=== PATIENT | female | born 1970 | race Caucasian/White ===

== ENCOUNTER → 2017-10-18 19:09 | Outpatient (CLI) | payer OTHER, SELFPAY ==
[2017-10-23 10:13] LABS: HPV APTIMA, High Risk Negative (Negative)
== END ==
PROVIDERS: Visit Provider Nurse Practitioner Women's Health
DX: Z12.4 Encounter for screening for malignant neoplasm of cervix (principal)
CPT/HCPCS: 88175; G0145

== ENCOUNTER → 2020-03-25 | Outpatient (CLI) | payer OTHER, SELFPAY ==
[2017-10-18 13:11] VITALS: BMI 27.8
--- NOTE | 2020-03-25 | IMM_PTH ---
PATIENT: GIL RODRIGUEZ LOC: [facility] #:[id number] AGE/SX: 50/F ROOM: RE03/25/[address]: Dr. Rubin Shah MD : 1970 BED: DIS: 03/25/2020 SPEC #: [id number] RECD: 03/29/20 12:49 STATUS: DAVIE SONNY #: [id number] BLANCA: 03/25/20 00:[address]: Rubin Shah DEPT: IMMUNOHISTOCHEMISTRY RECD BY: Karine Chavez Tissues: A - Uterine cervix, NOS B - Endocervical Procedures: p16 (initial) KI-67 (add) PHYSICIAN & [place] [id number] SPECIMEN INFORMATION: Tissue Source: A - Cervix, four-quad biopsy, B - ECC Clinical Info: R87.612, R87.950 Specimen Number: [id number] A & B CPT code: 90265 x2, 90170 x2 METHODOLOGY: Deparaffinized sections of prefer/formalin-fixed tissue or PAP/DQ stained slides are incubated with monoclonal/polyclonal antibodies/oligonucleotide probes. Localization is made via biotin free immunoperoxidase method. Appropriate controls are performed and reacted as expected. Results on target cell population are indicated in the following table: RESULTS: ANTIBODY / CLONE RESULT Block A P16 (E6H4) positive, focal block staining Ki-67 (30-9) positive, moderate Block B P16 (E6H4) positive, focal block staining Ki-67 (30-9) positive, moderate These tests were developed and their performance characteristics determined by [facility]. They may not have been cleared or approved by the U.S. Food and Drug Administration. The FDA has determined that such clearance or approval is not necessary. The above immunohistochemical/dualISH markers are ordered and reviewed by the Pathologist. INTERPRETATION: A. Cervix, four-quad biopsy: Mild and focal moderate squamous dysplasia. B. ECC: Mild and focal moderate squamous dysplasia. SJ:lucille 03/30/20 Case has been reviewed in consultation with Dr. Denny who concurs with the above diagnosis. IDC:AM
--- NOTE | 2020-03-25 15:30 | CER_PTH ---
PATIENT: GIL RODRIGUEZ [id number] AGE/SX: 50/F ROOM: RE03/25/[address]: Dr. Rubin Shah MD : 1970 BED: DIS: 03/25/2020 SPEC #: [id number] RECD: 03/25/20 16:00 STATUS: DAVIE JAVIERWhitney #: [id number] BLANCA: 03/25/20 15:[address]: Rubin Shah DEPT: SURGICAL PATHOLOGY RECD BY: Felix Valera Tissues: A - Uterine cervix, NOS B - Endocervical Procedures: Surgery Specimen Level IV HEADER OPERATION: Colposcopy PRE-OP DIAGNOSIS: R87.612, R87.810 TISSUE SUBMITTED: A - Cervical biopsy four quad, B - ECC MICROSCOPIC DIAGNOSIS A. 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 Chronic inflammation. See comment. B. ECC: Fragments of squamous epithelium with mild and focal moderate squamous dysplasia and focal changes suspicious for HPV cytopathic effects (HGSIL and CARA I-II). Fragments of benign endocervical mucosa with chronic inflammation and squamous metaplasia, blood and mucous. See comment. SJ:rg 03/29/20 COMMENT A & B. Immunohistochemistry ([id number]) for surrogate HPV marker (p16) supports the above diagnosis. This case has been reviewed in consultation with Dr. Denny who concurs with the above diagnosis. MICROSCOPIC DESCRIPTION Slides are reviewed. GROSS DESCRIPTION A - Received in fixative is one container labeled with the patient's name and designated cervical biopsy four quadrant. The specimen consists of multiple irregular fragments of conrad soft tissue that in aggregate measure 2 x 0.5 x 0.1 cm. The specimen is totally submitted in one cassette. B - Received in fixative is one container labeled with the patient's name and designated ECC. The specimen consists of multiple fragments of hemorrhagic soft tissue that in aggregate measure 1.2 x 1.2 x 0.2 cm. The specimen is totally submitted in one cassette. / AMEE:lucille 03/26/20 TC:5 CPT: 55404 x2
== END | disposition home or self-care (01) ==
LOC: LABSPEC 15:58
PROVIDERS: Visit Provider Obstetrics & Gynecology
DX: R87.612 Low grade squamous intraepithelial lesion on cytologic smear of cervix (LGSIL) (principal); R87.810 Cervical high risk human papillomavirus (HPV) DNA test positive
CPT/HCPCS: 88305; 88341; 88342

== ENCOUNTER 2020-06-14 09:09 | Day surgery (SDC) | payer OTHER, SELFPAY ==
[2020-06-09 13:35] LABS: Hematocrit 40.2 % (37-47); Hemoglobin 13.1 g/dL (12.0-15.0); Mean Corp Hgb Conc 32.6 g/dL (32-36); Mean Corpuscular Hgb 32.4 pg (27.0-32.0); Mean Corpuscular Volume 99.5 fL (81-99); Platelet Count 269 K/mm3 (150-450); RBC Distribution Width CV 12.3 % (11.6-14.6); RBC Distribution Width SD 44.5 fl (35.1-43.9); Red Blood Count 4.04 M/mm3 (4.2-5.4); White Blood Count 6.6 K/mm3 (4.4-11.0)
[2020-06-09 13:45] LABS: Prothrombin Time (Protime)PT. 12.6 SECONDS (11.7-14.9)
[2020-06-09 13:47] LABS: Partial Thromboplast Time 27.3 Seconds (24.1-36.2)
[2020-06-09 13:52] LABS: hCG Titer Quant., Serum < 1 mIU/mL (1-3)
--- NOTE | 2020-06-13 21:01 | PCM.HP.BLA ---
History and Physical Date of Admission: 06/14/20 Surgical History and Physical Tamia Moreno, a 50 year old female 3 0 1 0 3, presents for LEEP on June 14, 2020 at 7:30. -- CARA II. Mild and focal moderate squamous dysplasia with HPV changes (HGSIL and CARA I-II). MEDICATIONS HISTORY: ALLERGIES: No Known Allergies Infections - Chicken pox Illnesses - no serious past illnesses Accidents - None Hospitalizations - surgery Review of Systems: GENERAL - Denies fever, or chills SKIN - Denies skin changes EYES - Denies visual changes EARS - Denies difficulty hearing NOSE - Denies nasal congestion or bleeding MOUTH - Denies sore throat or difficulty swallowing NECK - Denies pain or swelling RESPIRATORY - Denies shortness of breath or wheezing CARDIOVASCULAR - Denies palpitations or chest pain GASTROINTESTINAL - Denies nausea, vomiting, diarrhea, constipation GENITOURINARY - Denies dysuria, frequency of urination, incontinence of urine MUSCULOSKELETAL - Denies joint or muscle pain NEUROLOGICAL - Denies localized numbness or weakness PSYCHIATRIC - Denies depression or anxiety ENDOCRINE - Denies heat or cold intolerance, weight loss or gain HEMATO-IMMUNOLOGIC - Denies excesive bleeding with cuts SOCIAL HISTORY: Alcohol Use - socially Smoking - Never Diet - no special diet Lifestyle - moderate stress lifestyle and Exercise - active Seat Belt Use - always Employer - [employer] 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 T and A, 1979 PHYSICAL EXAM BP- 122/70 Sitting, Right arm, regular cuff Weight- 143.17196 lbs Height- 62 inch BMI:26.21 CONSTITUTIONAL - NAD, well nourished, and well developed SKIN - No rash, lesions, or ulcers HEENT - Normocephalic, PERRLA, EOMI NECK - No nodes, no nuchal rigidity and thyroid normal size and texture LYMPH NODES - Palpation of lymph nodes in neck and groins within normal limits LUNGS - CTA x2 without wheezes, crackles or rales CARDIAC - Regular rate and rhythm without rubs, murmurs, or gallops BREAST - Deferred ABDOMEN - Without hepatosplenomegaly, distention, masses, rebound, or guarding; normal bowel sounds; no hernias EXTREMITIES - No edema or calf tenderness NEUROLOGICAL - Cranial nerves II-XII grossly intact PSYCHIATRIC - A and O to time, place, person, mood and affect MEDICATIONS HISTORY: none CONSTITUTIONAL - NAD, well nourished, and well developed SKIN - No rash, lesions, or ulcers HEENT - Normocephalic, PERRLA, EOMI NECK - No nodes, no nuchal rigidity and thyroid normal size and texture LYMPH NODES - Palpation of lymph nodes in neck and groins within normal limits LUNGS - CTA x2 without wheezes, crackles or rales CARDIAC - Regular rate and rhythm without rubs, murmurs, or gallops BREAST - No dominant masses, no tenderness, no axillary adenopathy, no nipple discharge, no skin changes ABDOMEN - Without hepatosplenomegaly, distention, masses, rebound, or guarding; normal bowel sounds; no hernias EXTREMITIES - No edema or calf tenderness NEUROLOGICAL - Cranial nerves II-XII grossly intact PSYCHIATRIC - A and O to time, place, person, mood and affect ASSESSMENT/PLAN BY DIAGNOSIS: 1. Moderate Cervical Dysplasia Plan LEEP. Discussed RBAS and all questions answered.
[2020-06-14] VITALS (7 sets, daily range): BP systolic 104–110; BP diastolic 70–79; PULSE 54–64; RESP 16; TEMP 36.2–37.4; O2SAT 97–100; BMI 26.0
--- NOTE | 2020-06-14 | IMM_PTH ---
PATIENT: IGL RODRIGUEZ LOC: [facility] [place] U#:[id number] AGE/SX: 50/F ROOM: RE06/14/[address]: Dr. Rubin Shah MD : 1970 BED: DIS: 06/14/2020 SPEC #: [id number] RECD: 06/15/20 12:32 STATUS: DAVIE REQ #: [id number] BLANCA: 06/14/20 00:[address]: Rubin Shah DEPT: IMMUNOHISTOCHEMISTRY RECD BY: Karine Chavez ENTERED: 06/15/20 12:34 SP TYPE: IMMUNO OT DR: No Primary Care Phys Tissues: A - Endocervical B - Uterine cervix, NOS Procedures: p16 (initial) KI-67 (add) PHYSICIAN & INSTITUTION [place] [id number] SPECIMEN INFORMATION: Tissue Source: A - Endocervix, B - Ectocervix Clinical Info: Moderate cervical dysplasia Specimen Number: [id number] A1 & B2 CPT code: 41304 x2, 05949 x2 METHODOLOGY: Deparaffinized sections of prefer/formalin-fixed tissue or PAP/DQ stained slides are incubated with monoclonal/polyclonal antibodies/oligonucleotide probes. Localization is made via biotin free immunoperoxidase method. Appropriate controls are performed and reacted as expected. Results on target cell population are indicated in the following table: RESULTS: ANTIBODY / CLONE RESULT Block A P16 (E6H4) negative Ki-67 (30-9) negative Block B P16 (E6H4) positive, focal, patchy Ki-67 (30-9) negative These tests were developed and their performance characteristics determined by [facility]. They may not have been cleared or approved by the U.S. Food and Drug Administration. The FDA has determined that such clearance or approval is not necessary. The above immunohistochemical/dualISH markers are ordered and reviewed by the Pathologist. INTERPRETATION: A. Endocervix, LEEP conization: No evidence of dysplasia. B. Ectocervix, LEEP conization: Focal mild squamous dysplasia, CARA I (LSIL). AM:lucille 06/16/20
[2020-06-14 09:34] LABS: Internal QC Validated? YES +Cl - CLEAR BKGD; Pregnancy, Urine Negative Negative
--- NOTE | 2020-06-14 10:07 | OP.PCM_ITS ---
Report of Operation Date of Procedure: 06/14/20 Pre-Operative Diagnosis: Moderate Cervical Dysplasia Post-Operative Diagnosis: Moderate Cervical Dysplasia Surgery/Procedure Performed:: LEEP Conization of the Cervix Description of Surgical Findings:: Normal-appearing cervix. Type of Anesthesia:: MAC Anesthesiologist: Mariah Mendez Specimen's removed: Ectocervix, endocervix, and endocervical curettings after LEEP Estimated Blood Loss (mL): Minimal Fluids Replaced: Crystalloid Description of Procedure: Surgeon: Rubin Shah MD, FACOG Indication: 50 year old patient who was recently noted to have moderate dysplasia at time of cervical biopsy. Given this, the patient desires that we proceed with the above surgery. She has been counseled regarding the risk, indications, and alternatives of this procedure and desire that we proceed. All questions answered. Procedure: Patient taken to the operating room where she was given IV sedation and placed in the dorsal lithotomy position and prepped and draped in the usual sterile fashion. Cervix was visualized and painted with Lugol's solution. The ectocervix was then removed to a depth of 5 mm on a setting of 50 W cutting and endocervix removed to a depth of 7 mm on a setting of 50 W cutting. Endocervical curettings were obtained. Base of the cone was then cauterized a setting of 50 W coagulation and Monsel's was painted across the LEEP base. Pt tolerated the procedure well and was taken to the recovery room in satisfact ory condition. Sponge, instruments and needle counts were all correct. There were no apparent complications of the surgery. To Pathology: Ectocervix, endocervix, ECC after LEEP EBL Minimal. Grafts/Implants Used: None - Complications None - Admit VTE Documentation VTE Present on Admission: Yes VTE Mechan Device Prophylaxis: SCD's
--- NOTE | 2020-06-14 10:10 | DCINST_ITS ---
Discharge Diet: No Restrictions Discharge Activity: Return to Normal Activity, May not drive while taking narcotic pain medications. May resume sexual activity in: 4 weeks - nothing in the vagina for 4 weeks. Call your doctor if you observe: Fever of 101 or Higher, Inability to urinate, Inability to have a bowel movement, Using more than one pad per hour Allergies/Adverse Reactions: Allergies No Known Allergies Allergy (Verified 05/07/20 09:58) Medications to take at Discharge NK 05/07/20 Primary Care Physician: Care Physician,No Primary [Primary Care Provider] - Test Results: Test results from this visit will be discussed in further detail at your follow- up appointment, if applicable. Please Follow Up With: Rubin Shah MD When: 3 to 4 weeks
[2020-06-14] MEDS: Lactated Ringers 1,000 ML 100 ML IV (10:33)
--- NOTE | 2020-06-14 11:00 | CER_PTH ---
PATIENT: GIL RODRIGUEZ LOC: [facility] [place] U#:[id number] AGE/SX: 50/F ROOM: RE06/14/[address]: Dr. Rubin Shah MD : 1970 BED: DIS: 06/14/2020 SPEC #: [id number] RECD: 06/14/20 12:28 STATUS: DAVIE REWhitney #: [id number] BLANCA: 06/14/20 11:[address]: Rubin Shah DEPT: SURGICAL PATHOLOGY RECD BY: Chaya Lara ENTERED: 06/14/20 12:57 SP TYPE: CERV OTHR DR: Tegan Primary Care Phys Tissues: A - UTERINE CERVIX LEEP B - UTERINE CERVIX LEEP C - Endocervical Procedures: Surgery Specimen Level IV Surgery Specimen Level V HEADER OPERATION: LEEP cone PRE-OP DIAGNOSIS: Moderate cervical dysplasia TISSUE SUBMITTED: A - Endocervix, B - Ectocervix, C - ECC after LEEP MICROSCOPIC DIAGNOSIS A. Endocervix, LEEP conization: Ectocervix with focal changes suspicious for HPV cytopathic change. Mild chronic inflammation. See comment. B. Ectocervix, LEEP conization: Focal mild squamous dysplasia (LSIL) present. Changes consistent with HPV cytopathic effect. Squamous metaplasia and chronic inflammation. See comment. C. Endocervix, curettings: Squamous metaplasia and chronic inflammation No evidence of dysplasia. AM:lucille 06/15/20 COMMENT A & B. Results from immunohistochemistry ([id number]) for surrogate HPV marker (p16) will be reported separately. B. Mild squamous dysplasia focally extends to the ectocervical margin of excision. Clinical correlation is suggested. Reference is made to the patient's previous cervical biopsy ([id number]) in which mild and focal moderate squamous dysplasia with HPV change was identified. Case has been reviewed in consultation with Dr. Marques who concurs with the above diagnosis. IDC:AMEE MICROSCOPIC DESCRIPTION Slides are reviewed. GROSS DESCRIPTION A - Received in fixative is one container labeled with the patient's name and designated endocervix. The specimen consists of two pieces of conrad mucosal tissue measuring 1 x 0.4 x 0.2 cm and 1.5 x 0.4 x 0.2 cm. No mucosal lesion is identified. The nonmucosal surface is inked black. Also present in the container is a small piece of conrad mucosal tissue measuring 0.3 x 0.3 x 0.1 cm. The entire specimen is submitted in two cassettes as follows: 1 - smallest piece of tissue and one larger piece of tissue, 2??largest piece of tissue. B - Received in fixative is one container labeled with the patient's name and designated ectocervix. The specimen consists of two pieces of conrad, indurated tissue measuring 1 x 0.7 x 0.4 cm and 1 x 0.9 x 0.4 cm. No mucosal lesion is identified. One of the pieces also shows adherent mucoid tissue. The nonmucosal surface is inked black. Both pieces are serially sectioned. The entire specimen is submitted in two cassettes with each cassette containing one piece. C - Received in fixative is one container labeled with the patient's name and designated ECC after LEEP. The specimen consists of multiple fragments of hemorrhagic soft tissue that in aggregate measure 2 x 0.2 x 0.1 cm. The specimen is totally submitted in one cassette. / SJ:lucille 06/14/20 TC:? CPT: 26643 x2, 08722
[2020-06-14] MEDS: FERRIC SUBSULFATE 8 GM SOLN (11:03)
[2020-06-14] MEDS: Iodine/Potassium Iodide 14ML Bottle 1 DRP TOPICAL (11:03)
== END 2020-06-14 12:02 | disposition home or self-care (01) ==
LOC: SDC 09:09 → AC 09:10
PROVIDERS: Anesthesiology; Referring Provider Obstetrics & Gynecology; Visit Provider Obstetrics & Gynecology
PROC: 0UBC7ZZ Excision of Cervix, Via Natural or Artificial Opening (ICD-10-PCS; CPT 57522; principal; 2020-06-14 10:45)
DX: N87.1 Moderate cervical dysplasia (principal); N72 Inflammatory disease of cervix uteri; Z20.828 Contact with and (suspected) exposure to other viral communicable diseases
CPT/HCPCS: 00940; 57522; 36415; 81025; 84702; 85027; 85610; 85730; 86850; 86900; 86901; 87635; 88305; 88307; 88341; 88342; C9803; J7120; U0003

== ENCOUNTER → 2022-09-20 | Outpatient (CLI) | payer OTHER, SELFPAY ==
--- NOTE | 2022-09-20 | CER_PTH ---
PATIENT: GIL RODRIGUEZ LOC: [facility]#:[id number] AGE/SX: 52/F ROOM: RE09/20/[address]: Dr. Luis Will MD : 1970 BED: DIS: 09/20/2022 SPEC #: [id number] RECD: 09/20/22 16:18 STATUS: DAVIE SONNY #: [id number] BLANCA: 09/20/22 00:[address]: Luis Will DEPT: SURGICAL PATHOLOGY RECD BY: Chaya Lara ENTERED: 09/21/22 08:10 SP TYPE: CERV ELIZA DR: No Primary Care Phys Tissues: A - Uterine cervix, NOS B - Endocervical Procedures: Surgery Specimen Level IV HEADER OPERATION: Colposcopy and endocervical curettage PRE-OP DIAGNOSIS: ASCUS positive, HPV positive TISSUE SUBMITTED: A ? 1, 5, 7 & 11, B ? Endocervical curettings MICROSCOPIC DIAGNOSIS A. Cervix, 1, 5, 7 & 11 o?clock, biopsy: Focal mild squamous dysplasia with HPV changes (LGSIL, CARA I). Chronic inflammation. See comment. B. Endocervical curettings: Focal mild squamous dysplasia (LGSIL, CARA I). Fragments of benign endocervical epithelium, blood and mucous. Focal chronic inflammation. SJ:luclile 09/22/2022 COMMENT A & B. Immunohistochemistry ([id number]) for surrogate HPV marker (p16) supports the above diagnosis. Please make reference to previous specimens ([id number]) cervix, four-quadrant biopsy with diagnosis of ?mild and focal moderate squamous dysplasia? and ([id number]) endocervix, LEEP conization with diagnosis of ?ectocervix with focal changes suspicious for HPV cytopathic change? and ectocervix, LEEP conization with diagnosis of ?focal mild squamous dysplasia.? MICROSCOPIC DESCRIPTION Slides are reviewed. GROSS DESCRIPTION A - Received in fixative is one container labeled with the patient's name and designated 1, 5, 7 & 11. The specimen consists of multiple irregular fragments of light conrad soft tissue that in aggregate measure 1.5 x 1.0 x 0.3 cm. The specimen is totally submitted in one cassette. B - Received in fixative is one container labeled with the patient's name and designated ECC. The specimen consists of multiple irregular fragments of conrad mucoid tissue that in aggregate measure 1.5 x 0.5 x 0.1 cm. The specimen is totally submitted in one cassette. / SJ:rg 09/21/2022 TC:5 CPT: 51683 x2
--- NOTE | 2022-09-20 | IMM_PTH ---
PATIENT: GIL RODRIGUEZ LOC: [facility] U#:[id number] AGE/SX: 52/F ROOM: RE09/20/[address]: Dr. Luis Will MD : 1970 BED: DIS: 09/20/2022 SPEC #: [id number] RECD: 09/22/22 14:24 STATUS: DAVIE REQ #: [id number] BLANCA: 09/20/22 00:[address]: Luis Will DEPT: IMMUNOHISTOCHEMISTRY RECD BY: Karine Chavez ENTERED: 09/22/22 14:25 SP TYPE: IMMUNO OT DR: No Primary Care Phys Tissues: A - Uterine cervix, NOS B - Endocervical Procedures: p16 (initial) KI-67 (add) PHYSICIAN & INSTITUTION [address] [id number] SPECIMEN INFORMATION: Tissue Source: A ? Cervix at 1, 5, 7 and 11 o?clock, B ? Endocervical curettings Clinical Info: ASCUS positive, HPV positive Specimen Number: [id number] A & B CPT code: 42338 x2, 51919 x2 METHODOLOGY: Deparaffinized sections of prefer/formalin-fixed tissue or PAP/DQ stained slides are incubated with monoclonal/polyclonal antibodies/oligonucleotide probes. Localization is made via biotin free immunoperoxidase method. Appropriate controls are performed and reacted as expected. Results on target cell population are indicated in the following table: RESULTS: ANTIBODY / CLONE RESULT Block A P16 (E6H4) positive, patchy staining Ki-67 (30-9) positive, low to moderate Block B P16 (E6H4) positive, patchy staining Ki-67 (30-9) positive, low These tests were developed and their performance characteristics determined by [facility]. They may not have been cleared or approved by the U.S. Food and Drug Administration. The FDA has determined that such clearance or approval is not necessary. The above immunohistochemical/dualISH markers are ordered and reviewed by the Pathologist. INTERPRETATION: A. Cervix at 1, 5, 7 and 11 o?clock, biopsy: Focal mild squamous dysplasia. B. Endocervical curettings: Focal mild squamous dysplasia. SJ:lucille 09/25/2022
== END | disposition home or self-care (01) ==
LOC: LABSPEC 16:11
PROVIDERS: Visit Provider Obstetrics & Gynecology
DX: N87.0 Mild cervical dysplasia (principal)
CPT/HCPCS: 88305; 88341; 88342